=== PATIENT | male | born 1995 | race Caucasian/White ===

== ENCOUNTER 2022-06-22 19:30 | Inpatient (IN) | payer SELFPAY ==
[2022-06-22 20:17] LABS: #Monocytes 0.3 thou/uL (0.11-0.59); #Neutrophils 2.1 thou/uL (1.40-6.50); %Basophils 0.9 % (0.0-1.0); %Eosinophils 1.3 % (0.0-10.0); %Lymphocytes 29.6 % (21.0-51.0); %Monocytes 7.8 % (0.0-10.0); %Neutrophils 60.4 % (42.0-75.0); Hemoglobin 12.9 g/dL (14.0-18.0); Mean Corpuscular HGB CONC 35.7 g/dL (32.0-36.0); Mean Corpuscular Hemoglobin 32.3 pg (27.0-31.0); Mean Corpuscular Volume 90.5 fl (78.0-98.0); Platelet Count 160 10x3/uL (130-400); RBC Distribution Width 10.6 % (11.5-14.5); Red Blood Cell (RBC) Count 3.98 mill/uL (4.70-6.10); White Blood Cell (WBC) Count 3.5 10x3/uL (4.8-10.8)
[2022-06-22 20:36] LABS: Acetaminophen Less than 10.0 mcg/mL (10.0-30.0); Alcohol 125 mg/dL (Less than 10); Salicylate Less than 8.0 mg/dL (15.0-30.0)
[2022-06-22 20:39] LABS: ALT (SGPT) 9 U/L (8-55); AST (SGOT) 13 U/L (5-34); Albumin 3.8 g/dL (3.5-5.0); Alkaline Phosphatase 40 U/L (40-110); Anion Gap 17 mmol/L (10-20); BUN (Urea Nitrogen) 6 mg/dL (8.9-20.6); Bilirubin, Total 0.3 mg/dL (0.2-1.2); CK (CPK) 101 U/L (30-200); Calc. Creatinine Clearance 0 mL/min (70-130); Carbon Dioxide 19 mmol/L (22-29); Chloride 108 mmol/L (98-107); Estimated GFR 125; Globulin 2.3 g/dL (2.4-3.5); Glucose 101 mg/dL (70-105); Protein, Total 6.1 g/dL (6.0-8.3); Sodium 141 mmol/L (136-145)
[2022-06-22 20:45] LABS: Potassium 2.6 mmol/L (3.5-5.1)
[2022-06-22 20:48] LABS: Phosphorus 3.6 mg/dL (2.3-4.7)
[2022-06-22 21:41] LABS: Magnesium 1.9 mg/dL (1.6-2.6)
[2022-06-22] MEDS ORDERED: Potassium Chloride 20 MEQ TAB ONE (21:46)
[2022-06-22] MEDS ORDERED: Ondansetron PF 4 MG/2 ML Vial IVP PRN (22:20)
[2022-06-22 22:48] LABS: #Lymphocytes 0.7 thou/uL (1.20-3.40); #Monocytes 0.3 thou/uL (0.11-0.59); #Neutrophils 5.4 thou/uL (1.40-6.50); %Basophils 0.1 % (0.0-1.0); %Eosinophils 0.3 % (0.0-10.0); %Lymphocytes 11.4 % (21.0-51.0); %Monocytes 4.9 % (0.0-10.0); %Neutrophils 83.4 % (42.0-75.0); Hemoglobin 13.2 g/dL (14.0-18.0); Mean Corpuscular HGB CONC 35.6 g/dL (32.0-36.0); Mean Corpuscular Hemoglobin 31.8 pg (27.0-31.0); Mean Corpuscular Volume 89.5 fl (78.0-98.0); Mean Platelet Volume 8.9 fL (7.4-10.4); Platelet Count 206 10x3/uL (130-400); RBC Distribution Width 10.8 % (11.5-14.5); Red Blood Cell (RBC) Count 4.13 mill/uL (4.70-6.10); White Blood Cell (WBC) Count 6.4 10x3/uL (4.8-10.8)
[2022-06-22 23:07] LABS: Anion Gap 14 mmol/L (10-20); BUN (Urea Nitrogen) 6 mg/dL (8.9-20.6); Calc. Creatinine Clearance 0 mL/min (70-130); Calcium 8.4 mg/dL (7.8-10.44); Carbon Dioxide 22 mmol/L (22-29); Chloride 108 mmol/L (98-107); Estimated GFR 126; Glucose 96 mg/dL (70-105); Potassium 3.4 mmol/L (3.5-5.1); Sodium 141 mmol/L (136-145)
[2022-06-22 23:16] LABS: Bilirubin Negative (Negative); Blood, Urine Negative (Negative); Clarity Turbid (Clear); Glucose, Urine (Dipstick) Normal (Negative); Ketone, Urine Trace mg/dL (Negative); Leukocyte Negative Leu/uL (Negative); Nitrite Negative (Negative); Protein, Urine (Dipstick) Negative (Neg-Trace); Specific Gravity, Urine 1.009 (1.002-1.036); Urobilinogen Normal mg/dL (Less than 2); pH, Urine 6.5 (5.0-9.0)
[2022-06-22] MEDS: Potassium Chloride 20 MEQ in Premix Bag 1 BAG IVPB SCH (23:18)
[2022-06-22] MEDS: Sodium Chloride 0.9% 1,000 ML IV SCH (23:18)
[2022-06-22 23:24] LABS: Amphetamine Not Detected (NotDetected); Barbiturates Screen Not Detected (NotDetected); Benzodiazepine Screen Not Detected (NotDetected); Cocaine Metabolite Screen Not Detected (NotDetected); Methadone Not Detected (NotDetected); Methamphetamine Not Detected (NotDetected); Opiate Screen Not Detected (NotDetected); Oxycodone Screen Not Detected (NotDetected); Phencyclidine (PCP) Not Detected (NotDetected); THC/Cannabinoid Screen Not Detected (NotDetected); Tricyclic Screen Not Detected (NotDetected)
[2022-06-23] MEDS: Potassium Chloride 20 MEQ in Premix Bag 1 BAG IVPB SCH (01:35)
[2022-06-23] MEDS ORDERED: Lactated Ringer's 500 ML IV SCH ×3 (06:00→06:30)
[2022-06-23] MEDS ORDERED: Lactated Ringer's 1,000 ML IV SCH (06:30)
[2022-06-23] MEDS: Sodium Chloride 0.9% 1,000 ML IV SCH ×2 (06:38→15:18)
[2022-06-23] MEDS ORDERED: Potassium Chloride 20 MEQ TAB PO SCH (08:00)
[2022-06-23] MEDS ORDERED: Famotidine 20 MG TAB ONE (09:11)
[2022-06-23] MEDS: Famotidine 20 MG TAB PO SCH ×2 (09:14→20:14)
[2022-06-23] MEDS ORDERED: Acetaminophen 325 MG TAB PO PRN (15:01)
[2022-06-23] MEDS ORDERED: Acetaminophen 325 MG TAB PO SCH (15:15)
[2022-06-23 16:14] VITALS: BMI 21.4
[2022-06-24 06:23] LABS: #Eosinphils 0.1 thou/uL (0.0-0.7); #Lymphocytes 1.3 thou/uL (1.20-3.40); #Monocytes 0.3 thou/uL (0.11-0.59); #Neutrophils 2.7 thou/uL (1.40-6.50); %Eosinophils 2.6 % (0.0-10.0); %Lymphocytes 29.3 % (21.0-51.0); %Monocytes 6.4 % (0.0-10.0); %Neutrophils 61.7 % (42.0-75.0); Hemoglobin 12.5 g/dL (14.0-18.0); Mean Corpuscular HGB CONC 35.6 g/dL (32.0-36.0); Mean Corpuscular Hemoglobin 33.1 pg (27.0-31.0); Mean Platelet Volume 9.7 fL (7.4-10.4); Platelet Count 149 10x3/uL (130-400); Red Blood Cell (RBC) Count 3.78 mill/uL (4.70-6.10); White Blood Cell (WBC) Count 4.4 10x3/uL (4.8-10.8)
[2022-06-24 06:43] LABS: Anion Gap 11 mmol/L (10-20); BUN (Urea Nitrogen) 10 mg/dL (8.9-20.6); Calc. Creatinine Clearance 115 mL/min (70-130); Calcium 8.4 mg/dL (7.8-10.44); Carbon Dioxide 21 mmol/L (22-29); Chloride 111 mmol/L (98-107); Estimated GFR 128; Glucose 106 mg/dL (70-105); Potassium 4.1 mmol/L (3.5-5.1); Sodium 139 mmol/L (136-145)
[2022-06-24] MEDS: Famotidine 20 MG TAB PO SCH ×2 (08:46→21:13)
[2022-06-25] MEDS: Famotidine 20 MG TAB PO SCH (09:03)
[2022-06-25] MEDS ORDERED: Polyethylene Glycol 3350 17 GM Packet PO PRN (11:17)
[2022-06-25 16:21] VITALS: BP 100/56; TEMP 98.1
== END 2022-06-25 18:27 | disposition short-term general hospital (02) | DRG 918 ==
LOC: ERS 19:30 → ERHOLD 21:38 → NEURO 06-23 14:43 → OBSVTOIN 06-23 17:16
PROVIDERS: ADMIT Hospitalist; ATTEND Emergency Medicine
DX: T43.592A Poisoning by other antipsychotics and neuroleptics, intentional self-harm, initial encounter (principal); T43.212A Poisoning by selective serotonin and norepinephrine reuptake inhibitors, intentional self-harm, initial encounter; E87.6 Hypokalemia; F32.A Depression, unspecified; K59.00 Constipation, unspecified; T51.0X2A Toxic effect of ethanol, intentional self-harm, initial encounter; F41.9 Anxiety disorder, unspecified
CPT/HCPCS: 36415; 36416; 80048; 80053; 80306; 80307; 81003; 82550; 83735; 84100; 84443; 85025; 93005; 94760; J3480; J7050; J7120

== ENCOUNTER 2022-12-27 13:41 | Emergency (ER) | payer SELFPAY ==
[2022-12-27] MEDS ORDERED: Rabies Vaccine Human 2.5 UNITS VIAL ONE (16:28)
[2022-12-27] MEDS ORDERED: Rabies Immune Globulin/PF 300 UNITS/ML VIAL ONE (16:29)
[2022-12-27] MEDS ORDERED: Rabies Immune Globulin 1500 UNITS/10 ML VIAL IM SCH (16:30)
== END 2022-12-27 17:20 | disposition home or self-care (01) ==
LOC: ERS 13:41
DX: S61.250A Open bite of right index finger without damage to nail, initial encounter (principal); Z23 Encounter for immunization; W55.01XA Bitten by cat, initial encounter
CPT/HCPCS: 90375; 90471; 90675; 99282

== ENCOUNTER → 2022-12-30 | Day surgery (SDC) | payer SELFPAY ==
[~2022-12-30] MED LIST: Rabies Vaccine Human 2.5 UNITS VIAL ONE
== END ==
LOC: ER/OP 17:16
DX: Z23 Encounter for immunization (principal)
CPT/HCPCS: 90471; 90675